=== PATIENT | female | born 1995 | race Caucasian/White ===

== ENCOUNTER 2018-09-12 17:52 | Emergency (ER) | payer OTHER, SELFPAY ==
[2018-09-12 17:57] VITALS: BP 130/89; PULSE 128; RESP 20; TEMP 37.1; O2SAT 98
--- NOTE | 2018-09-12 18:09 | CT_ITS ---
STUDY: CT BRAIN WITHOUT CONTRAST REASON FOR EXAM: Female, 23 years old. Seizure RADIATION DOSAGE (If Supplied By Facility): CTDIvol = ( 44.99 ) mGy, DLP = ( 728.62 ) mGycm TECHNIQUE: Transaxial CT imaging of the brain was performed without administration of intravenous contrast material. Individualized dose optimization techniques were used for this CT. COMPARISON: None. FINDINGS: Ventricles: Normal for patient's age. White matter and Cortex: Normal appearance of the white matter tracts. Normal appearance of the cortex. Basal ganglia and Thalami: Normal in appearance. Brainstem: Normal in appearance. Cerebellum: Normal in appearance. Vascular: No significant abnormalities. No evidence of acute hemorrhage. No evidence of acute ischemia. No evidence of mass effect. Soft tissues: Unremarkable. Bones: Unremarkable. Sinuses: Unremarkable. CT/Brain/Head without Contrast IMPRESSION: No acute intracranial abnormalities. Electronically Signed: Vale Medrano MD at 19:53 EST Tel Direct: [phone], Service support ,
[2018-09-12 18:41] LABS: Absolute Lymphocyte Count 0.76 X10^3/ul (0.83-4.51); Absolute Neutrophil Count 3.5 X10^3/uL (2.0-7.7); Basophil# 0.03 X10^3/uL; Basophil% 0.6 % (0-1); Eosinophil# 0.07 X10^3/uL; Eosinophils% 1.4 % (0-5); Hematocrit 36.2 % (37-47); Hemoglobin 12.4 g/dl (12.0-15.0); Lymphocyte # 0.76 X10^3/ul (4.0); Lymphocyte % 15.7 % (19-41); Mean Corp Hgb Conc 34.3 g/gl (32-36); Mean Corpuscular Hgb 30.2 pg (27.0-32.0); Mean Corpuscular Volume 88.3 fL (81-99); Mean Platelet Vol. 8.5 fl (6.2-12.0); Monocyte# 0.44 X10^3/uL; Monocyte% 9.1 % (0-10); Neutrophil # 3.53 X10^3/uL (2.7-7.7); Neutrophil % 73.2 % (47-70); Platelet Count 185 K/mm3 (150-450); RBC Distribution Width CV 12.2 % (11.6-14.6); RBC Distribution Width SD 39.2 fl (35.1-43.9); White Blood Count 4.8 K/mm3 (4.4-11.0)
[2018-09-12 18:42] LABS: POSITIVE COUNT NO; POSITIVE DIFFERENTIAL NO; POSITIVE MORPHOLOGY NO
[2018-09-12 18:49] LABS: Anion Gap 7 (5-15); BUN 18 mg/dL (7-18); BUN/Creat Ratio 17.6 RATIO (10-20); Calcium,Total 8.6 mg/dL (8.5-10.1); Chloride 111 mmol/L (98-107); Creatinine, Serum 1.02 mg/dL (0.55-1.02); EST Glomerular Filtration Rate 72 mL/min (>60); Est Glom Filt Rate - Afr Amer 87 mL/min (>60); Estimated Creatinine Clearance 92.92 ml/min; Glucose 85 mg/dL (74-106); Sodium Level 141 mmol/L (136-145)
[2018-09-12 18:54] LABS: Pregnancy, Serum, hCG Quali. NEGATIVE Negative (0-9 Nonpreg)
[2018-09-12 19:06] LABS: Amphetamine Urine VISTA POSITIVE (<1000 ng/mL); Barbiturate Urine VISTA NEGATIVE (< 200 ng/mL); Benzodiazepine Urine VISTA NEGATIVE (< 200 ng/mL); Cocaine Urine VISTA NEGATIVE (< 300 ng/mL); Ecstacy Urine VISTA POSITIVE (< 500 ng/mL); Methadone Urine VISTA NEGATIVE (< 300 ng/mL); PCP Urine VISTA NEGATIVE (< 25 ng/mL); THC Urine VISTA NEGATIVE (< 50 ng/mL); Vista UDS pH Range 5
[2018-09-12 20:25] VITALS: BP 127/72; PULSE 120; RESP 16; O2SAT 98
[2018-09-12 22:07] VITALS: BP 103/93; PULSE 116; RESP 16; O2SAT 98
--- NOTE | 2018-09-12 23:09 | ED.VISSUMM ---
- ER Visit Summary Date of Service: 09/12/18 Chief Complaint: Seizure History of Present Illness: The patient is a 23 F who has history of depression on Wellbutrin presents with witnessed generalized tonic-clonic seizure by many family members and 2 of the family members are paramedics. She currently stood up became stiff had generalized tonic-clonic activity. Seizure activity last for 1 minute. She was postictal when initially evaluated in the department. She complains of headache. There was incontinence of urine. She denies history of smoking, drinking or illicit drug use. Family states she is more oriented but not at baseline. There is no family history of seizures. She denied a history of seizures as a child or febrile seizures. She denies ocular, visual or auditory symptoms. She denies cardiac respiratory symptoms. There is been no nausea, vomiting diarrhea. She denies dysuria, frequency, urgency or hematuria. She states her last menses was 3 weeks ago. Physical Examination: Vital signs noted. She appears slightly anxious and tearful. Head is atraumatic normocephalic. Pupils are equal round reactive. Extraocular muscles are intact. TMs are pearly white with landmarks noted. Nares patent with no drainage. Posterior pharynx without erythema or exudate. Uvula is midline. There is no dysphonia or dysphasia. Trachea is midline. There is no stridor with auscultation of the neck. Heart is regular without murmur, gallop or rub. S1 and S2 are normal. Lungs are clear to auscultation with good movement of air bilaterally. Abdomen is soft nontender. Patient is alert and oriented ?2. Motor is 5 over 5. Sensory is intact. DTRs are symmetric with no clonus or Babinski sign. Cranial 2 through 12 are intact. Cerebellar testing is normal. When she was reassessed at 2250 she was alert oriented and answered questions quickly and appropriately. Test Results: CBC unremarkable. Electro panel unremarkable. Tox is positive for amphetamine, which may represent a false positive secondary to Wellbutrin. CT of the head revealed no acute intracranial process. Emergency Department Course and Treatment: Uncertain whether she may have had a focal seizure initially and reason for CAT scan as well as blood work and tox screen. Treatment Plan: Case was discussed with Dr. Ryan Soria. He recommended discontinuation of Wellbutrin. Family and patient was told to take half a tablet twice a day and contact her PCP to have the Wellbutrin tapered and prescribed a new medication. Disposition: Discharged home in stable condition with work restrictions and no driving. Impression: New onset seizure This note was generated with [employer] dictation software. It may contain incorrect words, spelling, and punctuation that were not noted in review of the chart prior to signing Him on ED Disposition - Plan for ED Patient: Disposition: Home or Assisted Living Chief Complaint: Seizure Instructions: ED Seizure New Onset Unk Cause Referrals: Juan Torres [Primary Care Provider] - 3-5 Days Additional Instructions: 1. Take 1/2 tablet of Wellbutrin in the morning and evening for the next several days. Contact Dr. Torres to taper off Wellbutrin and prescribe new anti-ankylotic. 2. No driving until cleared by Dr. Ryan Soria and appropriate restrictions at work 3. Contact Dr. Ryan Soria's office in the morning and informed his legal secretary that you were seen in the emergency room with diagnosis of new seizure and need outpatient workup.
--- NOTE | 2018-09-12 23:13 | ED.DCSUM_ITS ---
- ER Visit Summary Date of Service: 09/12/18 Chief Complaint: Seizure History of Present Illness: The patient is a 23 F who has history of depression on Wellbutrin presents with witnessed generalized tonic-clonic seizure by many family members and 2 of the family members are paramedics. She currently stood up became stiff had generalized tonic-clonic activity. Seizure activity last for 1 minute. She was postictal when initially evaluated in the department. She complains of headache. There was incontinence of urine. She denies history of smoking, drinking or illicit drug use. Family states she is more oriented but not at baseline. There is no family history of seizures. She denied a history of seizures as a child or febrile seizures. She denies ocular, visual or auditory symptoms. She denies cardiac respiratory symptoms. There is been no nausea, vomiting diarrhea. She denies dysuria, frequency, urgency or hematuria. She states her last menses was 3 weeks ago. Physical Examination: Vital signs noted. She appears slightly anxious and tearful. Head is atraumatic normocephalic. Pupils are equal round reactive. Extraocular muscles are intact. TMs are pearly white with landmarks noted. Nares patent with no drainage. Posterior pharynx without erythema or exudate. Uvula is midline. There is no dysphonia or dysphasia. Trachea is midline. There is no stridor with auscultation of the neck. Heart is regular without murmur, gallop or rub. S1 and S2 are normal. Lungs are clear to auscultation with good movement of air bilaterally. Abdomen is soft nontender. Patient is alert and oriented ?2. Motor is 5 over 5. Sensory is intact. DTRs are sym metric with no clonus or Babinski sign. Cranial 2 through 12 are intact. Cerebellar testing is normal. When she was reassessed at 2250 she was alert oriented and answered questions quickly and appropriately. Test Results: CBC unremarkable. Electro panel unremarkable. Tox is positive for amphetamine, which may represent a false positive secondary to Wellbutrin. CT of the head revealed no acute intracranial process. Emergency Department Course and Treatment: Uncertain whether she may have had a focal seizure initially and reason for CAT scan as well as blood work and tox screen. Treatment Plan: Case was discussed with Dr. Ryan Soria. He recommended discontinuation of Wellbutrin. Family and patient was told to take half a tablet twice a day and contact her PCP to have the Wellbutrin tapered and prescribed a new medication. Disposition: Discharged home in stable condition with work restrictions and no driving. Impression: New onset seizure This note was generated with [employer] dictation software. It may contain incorrect words, spelling, and punctuation that were not noted in review of the chart prior to signing Him on ED Disposition - Plan for ED Patient: Disposition: Home or Assisted Living Chief Complaint: Seizure Instructions: ED Seizure New Onset Unk Cause Referrals: Juan Torres [Primary Care Provider] - 3-5 Days Additional Instructions: 1. Take 1/2 tablet of Wellbutrin in the morning and evening for the next several days. Contact Dr. Torres to taper off Wellbutrin and prescribe new anti- ankylotic. 2. No driving until cleared by Dr. Ryan Soria and appropriate restrictions at work 3. Contact Dr. Ryan Soria's office in the morning and informed his guidance secretary that you were seen in the emergency room with diagnosis of new seizure and need outpatient workup.
[2018-09-12 23:35] VITALS: PULSE 117; RESP 19; O2SAT 97
== END 2018-09-12 23:35 | disposition home or self-care (01) ==
PROVIDERS: Emergency Provider Emergency Medicine; Family Provider Family Medicine; PCP Family Medicine
DX: G40.909 Epilepsy, unspecified, not intractable, without status epilepticus (principal); F32.9 Major depressive disorder, single episode, unspecified; F41.9 Anxiety disorder, unspecified; Z79.899 Other long term (current) drug therapy
CPT/HCPCS: 70450; 80048; 80307; 84703; 85025; 99285; A4216

== ENCOUNTER → 2018-09-22 17:48 | Outpatient (CLI) | payer OTHER, SELFPAY ==
--- NOTE | 2018-09-22 17:52 | MRI_ITS ---
STUDY: MRI BRAIN WITHOUT CONTRAST REASON FOR EXAM: Female, 23 years old. New seizure TECHNIQUE: Standardized multiplanar fat and water weighted pulse sequences were obtained. COMPARISON: CT of the brain on September 12, 2018 FINDINGS: Normal size of the ventricles and extra-axial spaces for the patient's age. Normal white matter tracts of the supratentorial brain. Normal bilateral basal ganglia. Normal thalami. There is no extra-axial fluid accumulation. Normal flow voids within the major intracranial circulation suggesting patency by spin echo criteria. Partial empty sella deformity. Normal, infundibular stalk, optic chiasm and hypothalamus. Normal tectal plate and pineal gland. Normal midbrain, josé and medulla. Normal cerebellum. Normal basal cisterns. Normal bilateral temporal bones. Normal bilateral internal auditory canals. No demonstrated orbital abnormality, within the constraints of a routine brain study. Minor mucosal thickening of the ethmoid air cells.. Normal calvarium and skull base. Normal visualized soft tissue structures. Normal visualized upper cervical spine. MRI/Brain without Contrast IMPRESSION: Partial empty sella deformity of uncertain clinical significance otherwise normal unenhanced MRI of the brain Minor bilateral ethmoid sinus disease. Electronically Signed: Huseyin Tidwell MD at 19:23 EST , Service support ,
== END ==
PROVIDERS: Family Provider Family Medicine; PCP Family Medicine; Referring Provider Psychiatry & Neurology Neurology; Visit Provider Psychiatry & Neurology Neurology
DX: R56.9 Unspecified convulsions (principal)
CPT/HCPCS: 70551

== ENCOUNTER → 2018-09-24 09:03 | Outpatient (CLI) | payer OTHER, SELFPAY ==
--- NOTE | 2018-09-24 12:10 | EEG_ITS ---
- Electroencephalogram This is an 18 channel electroencephalogram performed utilizing the International 10-20 electrode placement protocol as well as hyperventilation, and EKG reference leads. The test is performed on this 23-year-old female who had a seizure associated with incontinence and tongue biting while taking Wellbutrin. Wellbutrin has been discontinued for greater than 7 days. Background activity is 11 Hz symmetrically in the posterior leads which attenuates with eye-opening. Hyperventilation is performed for 3 minutes with good effort. Intermittently during the recording the patient has episodic bifrontal sharp wave activity with after coming slow-wave at approximately 3-5 Hz which appears to be fairly symmetric in the frontal leads. There are no associated movements or clinical manifestations according to the mechanical system technician's notes. Photic stimulation was therefore not performed. EKG is normal sinus rhythm throughout the recording. Impression: This is an abnormal electroencephalogram due to the presence of electrographic seizures with no clinical component. This report is relayed to the physician's office at the time of the recording.
== END ==
PROVIDERS: Family Provider Family Medicine; PCP Family Medicine; Referring Provider Psychiatry & Neurology Neurology; Visit Provider Psychiatry & Neurology Neurology
DX: R56.9 Unspecified convulsions (principal)
CPT/HCPCS: 95819

== ENCOUNTER → 2021-08-19 14:13 | Outpatient (CLI) | payer OTHER, SELFPAY ==
[2021-08-22 21:13] LABS: HPV Reflexed? NOT INDICATED
== END ==
PROVIDERS: PCP Family Medicine; Visit Provider Student in an Organized Health Care Education/Training Program
DX: Z12.4 Encounter for screening for malignant neoplasm of cervix (principal)
CPT/HCPCS: 88175; G0145